=== PATIENT | male | born 1995 | race Caucasian/White ===

== ENCOUNTER 2019-05-28 08:13 | Day surgery (SDC) | payer OTHER ==
[~2019-05-28] VITALS: Ht 177.8 cm; Wt 89.9 kg
[~2019-05-28 08:13] MED LIST: LIDOCAINE 1%-EPI 1:100K, 20ML ONE; ROPIvacaine/PF 0.5%, 30 ML ONE
[2019-05-28] MEDS ORDERED: DIAZEPAM 5 MG TABLET PO ONE (08:30)
[2019-05-28] MEDS ORDERED: GABAPENTIN 300 MG CAPSULE PO ONE (08:30)
[2019-05-28] MEDS ORDERED: ACETAMINOPHEN 500 MG TABLET PO ONE (08:30)
[2019-05-28] MEDS ORDERED: PLEASE ENTER ALLERGIES MC SCH (08:30)
[2019-05-28] MEDS ORDERED: SCOPOLAMINE PATCH, 1.5MG PATCH.TD72 TD ONE (08:30)
[2019-05-28] MEDS ORDERED: none per pt (08:58)
[2019-05-28 08:59] VITALS: BP 117/76
[2019-05-28] MEDS ORDERED: LACTATED RINGERS 1,000 ML IV SCH (09:04)
[2019-05-28] MEDS ORDERED: FENTANYL PF 250 MCG/5ML ONE (09:20)
[2019-05-28] MEDS ORDERED: MIDAZOLAM 1 MG/ML, 2ML ONE (09:20)
[2019-05-28] MEDS ORDERED: DEXAMETHASONE 4 MG/ML, 1ML ONE ×2 (09:21→09:30)
[2019-05-28] MEDS ORDERED: PROPOFOL 10 MG/ML, 20ML ONE (09:21)
[2019-05-28] MEDS ORDERED: CEFAZOLIN 1,000 MG ONE ×2 (09:21→09:30)
[2019-05-28] MEDS ORDERED: ROCURONIUM 10MG/ML,5ML ONE (09:21)
[2019-05-28] MEDS ORDERED: SUCCINYLCHOLINE 20 MG/ML, 10ML ONE (09:21)
[2019-05-28] MEDS ORDERED: ONDANSETRON 2MG/ML, 2ML ONE ×2 (09:30→10:34)
[2019-05-28] MEDS ORDERED: HYDROmorphone 2 MG/ML, 1ML IVPush PRN (10:00)
[2019-05-28] MEDS ORDERED: ONDANSETRON ODT 8 MG PO PRN (10:00)
[2019-05-28] MEDS ORDERED: hydrALAzine 20 MG/ML, 1ML IV PRN (10:00)
[2019-05-28] MEDS ORDERED: PROMETHAZINE 25 MG/ML, 1ML IV PRN (10:00)
[2019-05-28] MEDS ORDERED: EPHEDRINE 50 MG/ML, 1ML IVPush PRN (10:00)
[2019-05-28] MEDS ORDERED: MIDAZOLAM 1 MG/ML, 2ML IV PRN (10:00)
[2019-05-28] MEDS ORDERED: ALBUTEROL SULFATE 2.5 MG/3 ML NPPB PRN (10:00)
[2019-05-28] MEDS ORDERED: OXYcodone 5 MG/5 ML ORAL.SOL UDC PO PRN (10:00)
[2019-05-28] MEDS ORDERED: PROMETHAZINE 12.5 MG SUPP PR PRN (10:00)
[2019-05-28] MEDS ORDERED: ONDANSETRON 2MG/ML, 2ML IV PRN (10:00)
[2019-05-28] MEDS ORDERED: HALOPERIDOL 5 MG/ML IV PRN (10:00)
[2019-05-28] MEDS ORDERED: DIAZEPAM 5 MG/ML, 2ML IVPush PRN (10:00)
[2019-05-28] MEDS ORDERED: LABETALOL 5MG/ML, 20ML IV PRN (10:00)
[2019-05-28] MEDS ORDERED: MEPERIDINE/PF 25MG/ML,1ML ONE ×2 (10:52→10:57)
[2019-05-28] MEDS: MEPERIDINE/PF 25MG/ML,1ML IVPush PRN ×2 (10:53→11:10)
[2019-05-28] MEDS ORDERED: OXYcodone 5 MG/5 ML ORAL.SOL UDC ONE ×2 (10:57→11:05)
[2019-05-28] MEDS ORDERED: FENTANYL PF 100 MCG/2ML ONE (11:04)
[2019-05-28] MEDS ORDERED: DIAZEPAM 5 MG/ML, 2ML ONE (11:05)
[2019-05-28] MEDS: FENTANYL PF 100 MCG/2ML IV PRN ×2 (11:15→11:20)
[2019-05-28] MEDS ORDERED: HYDROmorphone 1 MG/ML, 1ML VIAL ONE (11:41)
[2019-05-28] MEDS ORDERED: KETOROLAC 30 MG/1 ML ONE (11:59)
[2019-05-28] MEDS ORDERED: KETOROLAC 30 MG/1 ML IVPush ONE (12:30)
== END 2019-05-28 13:50 | disposition home or self-care (01) ==
LOC: OUT 08:13
PROVIDERS: ATTEND Orthopaedic Surgery
DX: S83.512A Sprain of anterior cruciate ligament of left knee, initial encounter (principal); S83.282A Other tear of lateral meniscus, current injury, left knee, initial encounter; Z72.89 Other problems related to lifestyle; X58.XXXA Exposure to other specified factors, initial encounter; Y93.23 Activity, snow (alpine) (downhill) skiing, snowboarding, sledding, tobogganing and snow tubing; Y92.89 Other specified places as the place of occurrence of the external cause; Y99.8 Other external cause status
CPT/HCPCS: 29881; 29888; 64447; C1713; C1762; J0330; J0690; J1100; J1170; J1885; J2175; J2250; J2405; J2704; J2795; J3010; J3360; J3490; J7120